=== PATIENT | female | born 1965 | race Caucasian/White ===

== ENCOUNTER → 2018-10-29 | Outpatient (CLI) | payer BC ==
[~2018-10-29] MED LIST: LEVO75TA5 PO; MAGN400O19 PO; METO10TA3 PO; PANT40TA3 PO; SENN-120 PO
== END | disposition home or self-care (01) ==
LOC: MERGE 09:28 → LAB 09:28
DX: Z32.00 Encounter for pregnancy test, result unknown (principal)
CPT/HCPCS: 81001; 84703